=== PATIENT | female | born 1950 | race Caucasian/White ===

== ENCOUNTER 2020-10-28 16:32 | Inpatient (IN) ==
[2020-10-28] MEDS ORDERED: Isovue-370 500 ML BOTTLE IVP ONE (19:01)
[2020-10-28 19:15] LABS: Basophils # 0.1 K/mcL (0.0-0.2); Basophils % 0.9 %; Eosinophils # 0.3 K/mcL (0.0-0.6); Eosinophils % 2.8 %; Hematocrit 47.9 % (35.3-44.9); Hemoglobin 15.9 g/dL (11.5-15.4); Immature Granulocytes % 0.3 % (0-4); Lymphocytes # 2.2 K/mcL (0.6-4.6); Lymphocytes % 21.6 %; Mean Corpuscular HGB Conc 33.2 g/dL (31.6-35.5); Mean Corpuscular Hemoglobin 31.7 pg (28.0-33.3); Mean Corpuscular Volume 95.4 fL (83.0-100.0); Mean Platelet Volume 10.4 fL (9.4-12.4); Monocytes # 0.9 K/mcL (0.0-1.3); Monocytes % 8.7 %; Neutrophils # 6.7 K/mcL (1.6-8.9); Platelet Count 247 K/mcL (140-400); Red Blood Count 5.02 M/mcL (3.82-4.97); Red Cell Distribution Width 13.2 % (11.5-14.5); Segmented Neutrophils % 65.7 %; White Blood Count 10.3 K/mcL (4.3-11.1)
[2020-10-28 19:54] LABS: Alanine Aminotransferase 19 Units/L (7-52); Albumin 3.8 g/dL (3.5-5.7); Albumin/Globulin Ratio 1.4 (1.1-2.2); Alkaline Phosphatase 91 Units/L (34-104); Aspartate Amino Transferase 21 Units/L (13-39); BUN/Creatinine Ratio 29 (6-26); Bilirubin,Total 0.4 mg/dL (0.3-1.0); Blood Urea Nitrogen 20 mg/dL (8-23); Calcium 9.9 mg/dL (8.6-10.3); Carbon Dioxide 31 mEq/L (23-29); Chloride 101 mEq/L (98-107); Globulin 2.8 g/dL (2.4-3.5); Glucose 90 mg/dL (70-105); Magnesium 2.1 mg/dL (1.6-2.6); Osmolality,Calculated 290 (280-300); Potassium 3.8 mEq/L (3.5-5.1); Sodium 139 mEq/L (136-145); Total Protein 6.6 g/dL (6.4-8.9); Troponin I < 0.03 ng/mL (< 0.04); eGFR For African Americans > 60 (> 60); eGFR For Non-African Americans > 60 (> 60)
[2020-10-28 20:35] LABS: Bilirubin,Urine Negative (Negative); Blood,Urine Negative (Negative); Clarity,Urine Clear (Clear); Color,Urine Light-Yellow (Yellow); Glucose,Urine (UA) Normal (Normal); Ketones,Urine Negative (Negative); Leukocyte Esterase,Urine Negative (Negative); Nitrite,Urine Negative (Negative); Protein,Urine Negative (Neg-Trace); Specific Gravity,Urine 1.012 (1.010-1.025); Urobilinogen,Urine Normal (Normal)
[2020-10-28] MEDS ORDERED: Aspirin 81 MG TAB.CHEW PO STA (22:36)
[2020-10-29] MEDS ORDERED: Isovue-370 500 ML BOTTLE IVP ONE (00:48)
[2020-10-29] MEDS ORDERED: Perflutren Lipid Microsphere 1.3 ML in 0.9 % Sodium Chloride 8.7 ML IVP PRN (00:49)
[2020-10-29] MEDS ORDERED: Ondansetron 4 MG/2 ML VIAL IVP PRN (01:16)
[2020-10-29] MEDS ORDERED: Naloxone 0.4 MG/ML INJ IVP PRN (01:16)
[2020-10-29] MEDS ORDERED: D5% in Water 1,000 ML IVC PRN (01:25)
[2020-10-29] MEDS ORDERED: Dextrose Gel 15 GM/37.5 ML TUBE PO PRN ×2 (01:25)
[2020-10-29] MEDS ORDERED: *HR* Dextrose 50 % in Water (Vial) 50 ML VIAL IVP PRN (01:25)
[2020-10-29 03:10] LABS: Hematocrit 47.2 % (35.3-44.9); Hemoglobin 16.1 g/dL (11.5-15.4); Mean Corpuscular HGB Conc 34.1 g/dL (31.6-35.5); Mean Corpuscular Hemoglobin 32.1 pg (28.0-33.3); Mean Platelet Volume 9.9 fL (9.4-12.4); Platelet Count 235 K/mcL (140-400); Red Blood Count 5.02 M/mcL (3.82-4.97); Red Cell Distribution Width 13.2 % (11.5-14.5); White Blood Count 9.3 K/mcL (4.3-11.1)
[2020-10-29 03:19] LABS: Estimated Average Glucose 120 mg/dl; Hemoglobin A1C 5.8 %; Prothrombin Time 11.8 Seconds (9.4-12.1)
[2020-10-29 03:21] LABS: Activated Partial Thrombo Time 29.8 Seconds (26.0-36.0)
[2020-10-29 03:33] LABS: BUN/Creatinine Ratio 26 (6-26); Blood Urea Nitrogen 15 mg/dL (8-23); Calcium 9.1 mg/dL (8.6-10.3); Carbon Dioxide 31 mEq/L (23-29); Chloride 103 mEq/L (98-107); Chol/HDL Ratio 2.5 (0-4.9); Cholesterol 130 mg/dL (< 200); Glucose 94 mg/dL (70-105); HDL Cholesterol 53 mg/dL (40-59); LDL Cholesterol,Calculated 58 mg/dL (< 100); Osmolality,Calculated 289 (280-300); Potassium 3.4 mEq/L (3.5-5.1); Sodium 139 mEq/L (136-145); Triglycerides 95 mg/dL (< 150); Troponin I < 0.03 ng/mL (< 0.04); eGFR For African Americans > 60 (> 60); eGFR For Non-African Americans > 60 (> 60)
[2020-10-29 03:46] LABS: Thyroid Stimulating Hormone 0.713 mcIU/mL (0.340-5.600)
[2020-10-29] MEDS ORDERED: Insulin LISPRO 300 UNITS/3 ML VIAL SUBQ SCH (06:00)
[2020-10-29] MEDS ORDERED: Potassium Chloride Elixir 20 MEQ/15 ML UDC PO ONE (08:00)
[2020-10-29] MEDS: Aspirin Enteric Coated 81 MG Tablet PO SCH (09:43)
[2020-10-29] MEDS: Insulin LISPRO 300 UNITS/3 ML VIAL SUBQ SCH ×4 (10:01→20:59)
[2020-10-29] MEDS ORDERED: Acetaminophen 325 MG TABLET PO PRN (12:00)
[2020-10-29] MEDS: lisinopriL 20 MG TABLET PO SCH (16:27)
[2020-10-29] MEDS ORDERED: Ibuprofen 400 MG TABLET PO ONE (16:49)
[2020-10-29] MEDS: amLODIPine 5 MG TABLET PO SCH (19:07)
[2020-10-29] MEDS: Budesonide/Formoterol 160/4.5 1 PUFF INH IH SCH (20:15)
[2020-10-29] MEDS: traZODone 50 MG TABLET PO SCH (21:04)
[2020-10-29] MEDS: Gabapentin 300 MG CAPSULE PO SCH (21:05)
[2020-10-29] MEDS ORDERED: *HR* Labetalol 20 MG/4 ML SYRINGE IVP ONE (22:25)
[2020-10-30 04:07] LABS: Hematocrit 49.3 % (35.3-44.9); Hemoglobin 16.2 g/dL (11.5-15.4); Mean Corpuscular HGB Conc 32.9 g/dL (31.6-35.5); Mean Corpuscular Hemoglobin 31.4 pg (28.0-33.3); Mean Corpuscular Volume 95.5 fL (83.0-100.0); Mean Platelet Volume 9.8 fL (9.4-12.4); Platelet Count 240 K/mcL (140-400); Red Blood Count 5.16 M/mcL (3.82-4.97); White Blood Count 10.1 K/mcL (4.3-11.1)
[2020-10-30 04:26] LABS: BUN/Creatinine Ratio 19 (6-26); Blood Urea Nitrogen 19 mg/dL (8-23); Calcium 9.6 mg/dL (8.6-10.3); Carbon Dioxide 29 mEq/L (23-29); Chloride 102 mEq/L (98-107); Glucose 96 mg/dL (70-105); Osmolality,Calculated 288 (280-300); Potassium 3.5 mEq/L (3.5-5.1); Sodium 138 mEq/L (136-145); eGFR For African Americans > 60 (> 60); eGFR For Non-African Americans 56 (> 60)
[2020-10-30] MEDS ORDERED: 0.9 % Sodium Chloride 1,000 ML IVC SCH (08:00)
[2020-10-30] MEDS: Budesonide/Formoterol 160/4.5 1 PUFF INH IH SCH ×2 (08:07→20:19)
[2020-10-30] MEDS: Insulin LISPRO 300 UNITS/3 ML VIAL SUBQ SCH ×4 (10:29→21:27)
[2020-10-30] MEDS: amLODIPine 5 MG TABLET PO SCH (10:47)
[2020-10-30] MEDS: FLUoxetine 20 MG CAPSULE PO SCH (10:47)
[2020-10-30] MEDS: Aspirin Enteric Coated 81 MG Tablet PO SCH (10:48)
[2020-10-30] MEDS: lisinopriL 20 MG TABLET PO SCH (10:49)
[2020-10-30] MEDS: Loratadine 10 MG TABLET PO SCH (10:49)
[2020-10-30 12:24] LABS: Folate > 22.3 ng/mL (3.0-16.0)
[2020-10-30 12:26] LABS: Vitamin B12 949 pg/mL (250-1100)
[2020-10-30] MEDS ORDERED: Ipratropium/Albuterol Neb 3 ML IH PRN (16:07)
[2020-10-30] MEDS: Nicotine 7 MG PATCH.TD24 TD SCH (20:16)
[2020-10-30] MEDS: traZODone 50 MG TABLET PO SCH (20:29)
[2020-10-30] MEDS: Gabapentin 300 MG CAPSULE PO SCH (20:29)
[2020-10-31 03:49] LABS: BUN/Creatinine Ratio 41 (6-26); Blood Urea Nitrogen 28 mg/dL (8-23); Calcium 9.4 mg/dL (8.6-10.3); Carbon Dioxide 28 mEq/L (23-29); Chloride 104 mEq/L (98-107); Glucose 111 mg/dL (70-105); Osmolality,Calculated 292 (280-300); Potassium 3.3 mEq/L (3.5-5.1); Sodium 138 mEq/L (136-145); eGFR For African Americans > 60 (> 60); eGFR For Non-African Americans > 60 (> 60)
[2020-10-31] MEDS: Budesonide/Formoterol 160/4.5 1 PUFF INH IH SCH (07:20)
[2020-10-31] MEDS: FLUoxetine 20 MG CAPSULE PO SCH (08:48)
[2020-10-31] MEDS: Aspirin Enteric Coated 81 MG Tablet PO SCH (08:48)
[2020-10-31] MEDS: amLODIPine 5 MG TABLET PO SCH (08:49)
[2020-10-31] MEDS: Loratadine 10 MG TABLET PO SCH (08:49)
[2020-10-31] MEDS: Insulin LISPRO 300 UNITS/3 ML VIAL SUBQ SCH ×2 (08:50→12:10)
[2020-10-31] MEDS: Nicotine 7 MG PATCH.TD24 TD SCH (08:58)
[2020-10-31] MEDS ORDERED: Metoprolol XL (24 HR) Succ 50 MG TAB.ER.24H PO SCH (09:00)
[2020-10-31 14:51] VITALS: BP 148/75
== END 2020-10-31 16:27 | disposition home health service (06) | DRG 65 ==
LOC: EMEROOARM 16:32 → 3BNU 16:32 → SUATTDRO 10-29 00:04 → 3BNU 10-29 00:21
PROVIDERS: ADMIT Internal Medicine; ATTEND Nurse Practitioner